=== PATIENT | male | born 1965 | race Caucasian/White ===

== ENCOUNTER 2017-05-02 20:46 | Emergency (ER) | payer SELFPAY ==
[2017-05-02 20:58] VITALS: BP 116/77; PULSE 83; TEMP 99.7; BMI 24.7
--- NOTE | 2017-05-02 22:36 | PDOC ---
History of Present Illness - General Chief Complaint: Injury Stated Complaint: LEFT ANKLE INJURY Time Seen by Provider: 05/02/17 21:05 - History of Present Illness Initial Comments: 05/02/17 22:30 CHIEF COMPLAINT: ankle pain HISTORY OF PRESENT ILLNESS: 51 yo M with no known medical history presents to [facility] s/p injury. Patient was playing soccer when he twisted his ankle and "felt a pop." Patient complains of a lot of pain and states he is unable to walk on the foot. No recent travel or sick contacts. PAST MEDICAL HISTORY: Denies past medical history FAMILY HISTORY: Denies SOCIAL HISTORY: Denies tobacco, alcohol, illicit drug use. SURGICAL HISTORY: Denies ALLERGIES: No known drug allergies REVIEW OF SYSTEMS General/Constitutional: Denies fever or chills. Denies weakness, weight change. HEENT: Denies change in vision. Denies ear pain or discharge. Denies sore throat. Cardiovascular: Denies chest pain or shortness of breath. Musculoskeletal: Pain and swelling to left ankle. Denies neck or back pain. Skin: Denies rash or easy bruising. Neurologic: Denies headache, vertigo, loss of consciousness, or loss of sensation. PHYSICAL EXAM General Appearance: Well-appearing, appropriately dressed. No apparent distress. HEENT: EOMI, PERRLA. Neck: No midline cervical spine tenderness. Supple. Trachea midline. No tenderness, rigidity, carotid bruit, stridor, lymphadenopathy, or thyromegaly. Respiratory/Chest: Lungs CTAB. Cardiovascular: RRR. S1, S2. Vascular Pulses: Dorsalis-Pedis (R): 2+, Dorsalis-Pedis (L): 2+ Musculoskeletal/Extremities: Tenderness, swelling, and ecchymosis to L lateral malleolus. No loss of sensation or decreased temperature to left foot, pulses 2 + b/l. FROM of all other extremities, normal capillary refill. No tenderness to extremities, pedal edema, swelling, erythema or deformity. Integumentary: Appropriate color, dry, warm. 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 Fully oriented, alert. Appropriate mood/affect. Motor strength 5/5. No appreciable EOM palsy, facial droop or sensory deficit. 05/02/17 22:38 Past History - Past Medical History Allergies/Adverse Reactions: Allergies Allergy/AdvReac Type Severity Reaction Status Date / Time No Known Allergies Allergy Verified 05/02/17 20:58 Home Medications: Ambulatory Orders Naproxen [Naprosyn -] 500 mg PO BID #14 tablet 05/02/17 Oxycodone HCl/Acetaminophen [Percocet 5-325 mg Tablet] 1 - 2 tab PO Q6H #20 tab MDD 5 05/02/17 Other medical history: denies - Surgical History Abdominal Surgery: Yes (hernia) - Psycho/Social/Smoking Cessation Hx Suicidal Ideation: No Smoking History: Never smoked *Physical Exam - Vital Signs Last Vital Signs Temp Pulse Resp BP Pulse Ox 99.7 F H 83 18 116/77 99 05/02/17 20:54 05/02/17 20:54 05/02/17 20:54 05/02/17 20:54 05/02/17 20:54 ED Treatment Course - RADIOLOGY Radiology Studies Ordered: Category Date Time Status ANKLE & FOOT-LEFT* [RAD] Stat Radiology 05/02/17 21:07 Taken Medical Decision Making - Medical Decision Making 05/02/17 22:41 51 yo M with no known medical history presents to [facility] s/p injury. -left ankle x-ray -percocet Ankle x-ray positive for fracture of distal fibula. Ankle splinted with orthoglass in posterior/stirrup splint. Patient referred to orthopedics for close f/u tomorrow. Advised patient to take medication as prescribed and follow up with orthopedics tomorrow. Advised patient of signs and symptoms for return to ED. Patient verbalized understanding and agrees to plan. *DC/Admit/Observation/Transfer Diagnosis at time of Disposition: Fibula fracture Qualifiers: Encounter type: initial encounter Fibula location: distal Fracture type: closed Fracture morphology: other fracture Laterality: left Qualified Code(s): S82.832A - Other fracture of upper and lower end of left fibula, initial encounter for closed fracture - Discharge Dispostion Disposition: HOME Condition at time of disposition: Improved Admit: No - Prescriptions Prescriptions: Naproxen [Naprosyn -] 500 mg PO BID #14 tablet Oxycodone HCl/Acetaminophen [Percocet 5-325 mg Tablet] 1 - 2 tab PO Q6H #20 tab MDD 5 - Referrals Referrals: Mahamed Castaneda MD [Staff Physician] - - Patient Instructions Printed Discharge Instructions: DI for Ankle Fracture Additional Instructions: Please take medications as prescribed. As discussed, you must follow up with orthopedics tomorrow for further evaluation of your fracture. If you experience any loss of sensation, numbness, or tingling to your leg or foot, or any new or worsening symptoms, please return to the ER. - Post Discharge Activity Work/School Note: Back to Work
== END 2017-05-02 22:55 | disposition home or self-care (01) ==
LOC: JERFT 20:46
PROC: 2W3MX1Z Immobilization of Left Lower Extremity using Splint (ICD-10-PCS; principal; 2017-05-02)
DX: S82.832A Other fracture of upper and lower end of left fibula, initial encounter for closed fracture (principal); X50.1XXA Overexertion from prolonged static or awkward postures, initial encounter; Y93.66 Activity, soccer; Y92.322 Soccer field as the place of occurrence of the external cause; Y99.8 Other external cause status
CPT/HCPCS: 73610-TC-LT; 73630-TC-LT; 99281-25